=== PATIENT | male | born 1960 | race Caucasian/White ===

== ENCOUNTER 2020-12-18 16:16 | Emergency (ER) | payer BC, SELFPAY ==
--- OUTSIDE RECORDS SUMMARY | 2020-12-18 16:17 | XMS REPORT | Continuity of Care Document ---
:1960 Author Organization [facility] t Address [address] [place] [address] Care Team Providers Name Role Phone Unavailable Unavailable Unavailable Problems Condition Condition Condition Status Onset Resolution Last Treating Co mments Source Name Details Category Date Date Treatment Clinician Date Onychomyco Onychomyco Problem Active [facility] Diverticul Diverticul Problem Active [facility] disease [place] [facility] Neuropathy Neuropathy Problem Active [facility] Osteoarthr Osteoarthr Problem Active [facility], knee, [facility] unspecifie unspecifie l d d Outpati laterality laterality en t , , Clinics unspecifie unspecifie d d osteoarthr osteoarthr itis type itis type Allergies, Adverse Reactions, Alerts This patient has no known allergies or adverse reactions. Medications Ordered Filled Start Stop Current Ordering Indication Dosage Frequency Signature Comments Components Source Medication Medication Date Date Medication? Clinician (SIG) Name Name Gabapentin Gabapentin Yes Rishi [address] [facility] Amoxicillin Amoxicillin Yes Rishi [address] [facility] Terbinafine Terbinafine Yes Rishi [address] [facility] Procedures This patient has no known procedures. Encounters Start End Encounter Admission Attending Care Care Encounter Source Date/Time Date/Time Type Type Clinicians Facility Department ID 2018-06-06 2018-06-06 Outpatient Cristel Perez [id number] [facility] [address] 11:29:00 11:29:00 [facility] 2018-06-06 2018-06-06 Outpatient Cristel Perez [id number] [facility] [address] 10:45:00 10:45:00 t [facility] Results This patient has no known results.
--- NOTE | 2020-12-18 19:16 | ER ---
Nurse's Notes [facility] Name: Nicholas Bullock Age: 60 yrs Sex: Male : 1960 Arrival Date: 12/18/2020 Time: 16:18 Bed External Waiting Private MD: Diagnosis: Presentation: 12/18 16:27 Chief complaint: Patient states: Lifting heavy boxes 10 days ago, R shoulder pain ll1 since. CP through the center of chest for 9 days. Coronavirus screen: Client denies travel out of the [place] in the last 14 days. At this time, the client does not indicate any symptoms associated with coronavirus-19. Ebola Screen: Patient denies travel to an Ebola-affected area in the 21 days before illness onset. Initial Sepsis Screen: Does the patient meet any 2 criteria? HR > 90 bpm. No. Patient's initial sepsis screen is negative. Does the patient have a suspected source of infection? Yes:. Risk Assessment: Do you want to hurt yourself or someone else? Patient reports no desire to harm self or others. Onset of symptoms was December 10, 2020. 16:27 Method Of Arrival: Ambulatory ll1 16:27 Acuity: ADILSON 3 ll1 Historical: - Allergies: 16:30 wasp venom; ll1 16:30 lysol; ll1 - PMHx: 16:30 None; ll1 - PSHx: 16:30 None; ll1 - Immunization history:: Flu vaccine is up to date. - Social history:: Smoking status: Patient denies any tobacco usage or history of. Vital Signs: 16:27 BP 134 / 74; Pulse 97; Resp 18; Temp 98.1; Pulse Ox 98% ; Weight 104.78 kg; Height 5 ll1 ft. 8 in. (172.72 cm); Pain 5/10; 16:27 Body Mass Index 35.12 (104.78 kg, 172.72 cm) ll1 ED Course: 16:18 Patient arrived in ED. as 16:29 Triage completed. ll1 16:29 Arm band placed on. ll1 Administered Medications: No medications were administered Outcome: 19:16 Patient left the ED. sg Signatures: Arley Raymundo RN RN Ethel Rousseau Lynsay, RN RN [facility]
[2020-12-18 20:37] VITALS: BP 134/74; TEMP 98.1; O2SAT 98
== END 2020-12-18 19:16 | disposition left against medical advice (07) ==
LOC: ER 16:16
DX: Z53.21 Procedure and treatment not carried out due to patient leaving prior to being seen by health care provider (principal)
CPT/HCPCS: 93005; 99281